=== PATIENT | female | born 1990 | race Caucasian/White ===

== ENCOUNTER 2016-08-03 15:43 | Outpatient (CLI) | payer OTHER ==
[~2016-08-03] VITALS: Ht 157.5 cm; Wt 84.1 kg
[2016-08-03 15:41] VITALS: BP 116/69; PULSE 79; RESP 18; Ht 157.5 cm; Wt 84.1 kg
[~2016-08-03 15:43] MED LIST: DOCU-144 PO; HYDR-3498 PO
--- NOTE | 2016-08-03 16:37 | PN ---
Date/Time of Note Date/Time of Note DATE: 08/03/16 TIME: 16:31 Assessment/Plan Assessment/Plan Assessment/Plan [facility] Progress Note Date of Service: 08/03/2016 Today's Assessment & Plan: Overall stable and doing well. No further issues. No indication for acute surgical intervention. No stent to remove. With above assessment, I've recommended the following for today: 1. F/u with PCP 2. F/u with us prn Thank you again for your great care of this very pleasant young lady and her wonderful family. If there are any questions, please feel free to call me at [phone]. TOTAL VISIT TIME: 20 minutes of which more than half was spent in [id number] discussion with the patient as well as coordination of care between multiple physicians and providers. Disclaimer: Inadvertent spelling and grammatical errors are likely due to EHR/ dictation software use and do not reflect on the quality of delivered patient care. Also, please note that the electronic time recorded on this node does not necessarily reflect the actual time of the visit. Updated Clinical Summary: The patient is a very pleasant otherwise healthy 26-year-old young lady with BMI of 34.7 with gallstone pancreatitis and otherwise normal appearing gallbladder. The patient appears to be clinically stable and my suspicion is that her pancreatitis is rapidly improving. I recommended that we do a laparoscopic cholecystectomy as a preventative measure due to patient's diagnosis of gallstone pancreatitis. S/p an otherwise uncomplicated laparoscopic cholecystectomy was performed with findings of normal appearing gallbladder with cholelithiasis on 06/07/16. D/c home 06/08/16. Had a postoperative clinic visit with me in my office on 06/15/2016. At that time, the patient appeared to be doing well with normal expected postoperative findings. This was followed by a visit to the emergency department at [facility] where again her workup that included laboratory values as well as a CT scan showed normal expected postoperative findings. Shortly after this, the patient pre-presented to an outside hospital emergency department where her transaminases were found to be elevated (AST approximately 1700) and amylase elevation. Transferred to [facility] for recurrent pancreatitis 06/16/16. S/p ERCP with removal of one (6 mm) stone and sphincterotomy 06/17/16 (no stent). D/c home 06/18/16. Comorbidity/PMHx List: 1. BMI 33.1 (previously 34.7) 2. Gallstone pancreatitis May 2016 3. Laparoscopic cholecystectomy 06/07/2016 4. ERCP with stone removal 06/17/2016 Subjective: No major events or complaints; no abd pain and no longer on pain medications; no n/v/d; no sob or cp; + flatus; + BM and normal; + activity Objective: Vitals: See below Exam: GENERAL: On exam, the patient was sitting up in a chair and appeared to be comfortable and in no acute distress. ABDOMEN: Soft, nontender and nondistended. Incisions are clean, dry and intact without any evidence of erythema, edema, discharge, or hernia. There are no peritoneal signs or guarding. SKIN: Skin appears to be pink and feels warm to touch. NEUROLOGIC: Patient is awake, alert, and follows commands appropriately. Exam/Review of Systems Vital Signs Vitals Vital Signs Date Time Temp Pulse Resp B/P Pulse Ox O2 Delivery O2 Flow Rate FiO2 08/03/16 15:41 98.0 79 18 116/69 99 Room Air JEWELL CLARK M.D. Aug 03, 2016 16:37
== END 2016-08-03 16:45 | disposition home or self-care (01) ==
LOC: HPC 15:43
PROVIDERS: ATTEND Transplant Surgery
DX: K85.10 Biliary acute pancreatitis without necrosis or infection (principal); K80.20 Calculus of gallbladder without cholecystitis without obstruction
CPT/HCPCS: G0463

== ENCOUNTER 2016-09-28 13:44 | Emergency (ER) | payer OTHER ==
[~2016-09-28] VITALS: Wt 61.4 kg
[2016-09-28] MEDS ORDERED: DICLOFENAC SODIUM 37.5 MG/ML VIAL IV STA (14:16)
[2016-09-28] MEDS ORDERED: ONDANSETRON 4 MG INJ IV STA (14:16)
[2016-09-28] MEDS ORDERED: SOD CHLORIDE 0.9% 1,000 ML IV ONE (14:30)
[2016-09-28 14:55] LABS: ADD SCAN DIFF NO
[2016-09-28 14:58] LABS: ADD UMIC YES; BASOPHIL # 0.1 10^3/ul (0.0-0.1); BASOPHILS % 0.7 % (0.0-2.0); EOSINOPHILS # 0.1 10^3/ul (0.0-0.5); EOSINOPHILS % 1.3 % (0.0-7.0); HEMATOCRIT 38.9 % (37.0-47.0); HEMOGLOBIN 11.8 g/dl (12.0-16.0); LYMPHOCYTES # 3.1 10^3/ul (0.8-2.9); LYMPHOCYTES % 40.9 % (15.0-51.0); MEAN CORPUSCULAR HEMOGLOBIN 22.5 pg (29.0-33.0); MEAN CORPUSCULAR HGB CONC 30.3 g/dl (32.0-37.0); MEAN CORPUSCULAR VOLUME 74.2 fl (82.0-101.0); MEAN PLATELET VOLUME 9.5 fl (7.4-10.4); MONOCYTE # 0.5 10^3/ul (0.3-0.9); MONOCYTES % 6.7 % (0.0-11.0); NEUTROPHIL # 3.8 10^3/ul (1.6-7.5); NEUTROPHILS % 50.3 % (39.0-77.0); PLATELET COUNT 366 10^3/UL (140-415); RED BLOOD COUNT 5.24 10^6/ul (4.20-5.40); RED CELL DISTRIBUTION WIDTH 13.8 % (11.5-14.5); URINE BILIRUBIN (Dip) NEGATIVE (NEGATIVE); URINE BLOOD (Dip) NEGATIVE (NEGATIVE); URINE COLOR LT. YELLOW (YELLOW); URINE GLUCOSE (Dip) NEGATIVE (NEGATIVE); URINE KETONES (Dip) NEGATIVE (NEGATIVE); URINE LEUKOCYTE ESTERASE (Dip) 1+ (NEGATIVE); URINE NITRITE (Dip) NEGATIVE (NEGATIVE); URINE TOTAL PROTEIN (Dip) NEGATIVE (NEGATIVE); URINE UROBILINOGEN (Dip) 0.2 E.U./dL (0.1-1.0); WHITE BLOOD COUNT 7.5 10^3/ul (4.8-10.8)
--- NOTE | 2016-09-28 15:05 | ERD ---
ER Documentation Chief Complaint Date/Time DATE: 09/28/16 TIME: 15:02 Chief Complaint gen'l abd pain, n/v/d, cough, curry HPI 26-year-old female presented to ED with multiple complaints. First, she complained of abdominal pain 2 days. The pain comes and goes, is strong. Accompanied with nausea and vomiting. She had 2 episodes of vomiting today. Last bowel movement was last night, and it was normal. She has history of pancreatitis, and cholecystectomy. Denies fever or chills. Denies diarrhea. Denies cough or runny nose. Denies dysuria. Second complaint is headache. She had headache for last 4 days. The pain is constant, concentrated in the forehead and eyes. Positive photophobia. Denies blurry vision. She took Tylenol at home for headache, Tylenol did improve the headache. Last dose of Tylenol was 3 hours ago. Denies recent head injuries. Denies neck pain. ROS All systems reviewed and are negative except as per history of present illness. Medications Home Meds Active Scripts Nitrofurantoin Monohyd Macrocr* (Macrobid*) 100 Mg Capsr, 100 MG PO BID for 7 Days, CAP Prov:FREDDIE YANES. TEXTURING MACHINE FIXER 09/28/16 Dicyclomine Hcl* (Bentyl*) 10 Mg Capsule, 10 MG PO QID, #10 CAP Prov:FREDDIE YANES. TEXTURING MACHINE FIXER 09/28/16 Ondansetron Hcl* (Zofran*) 4 Mg Tablet, 4 MG PO Q6H for NAUSEA AND/OR VOMITING, #30 TAB Prov:FREDDIE YANES. TEXTURING MACHINE FIXER 09/28/16 Acetaminophen* (Tylophen*) 500 Mg Capsule, 1 CAP PO Q6H Y for PAIN AND OR ELEVATED TEMP, #20 CAP Prov:FREDDIE YANES. TEXTURING MACHINE FIXER 09/28/16 Docusate Sodium* (Colace*) 100 Mg Capsule, 100 MG PO BID for 30 Days, #60 CAP Prov:BOYD ROSAS MD 06/18/16 Hydrocodone Bit-Acetaminophen (Hydrocodone Bit-APAP) 5-325MG Tablet, 1 TAB PO Q4H Y for PAIN LEVEL 4-7, #40 TAB Prov:IAN ARROYO 06/08/16 Allergies Allergies: Coded Allergies: No Known Allergy (Unverified , 06/16/16) PMhx/Soc History of Surgery: Yes (Cholecystectomy 06/08) Anesthesia Reaction: No Hx Neurological Disorder: No Hx Respiratory Disorders: No Hx Cardiac Disorders: No Hx Psychiatric Problems: No Hx Miscellaneous Medical Probl: No Hx Alcohol Use: No Hx Substance Use: No Hx Tobacco Use: No Physical Exam Vitals Vital Signs Date Time Temp Pulse Resp B/P Pulse Ox O2 Delivery O2 Flow Rate FiO2 09/28/16 13:46 98.3 80 20 123/65 99 Physical Exam General impression: Well-developed, well-nourished. Alert, oriented, in no acute distress Head: Normocephalic, atraumatic. Eyes: PERRL, EOM normal. Sclerae are normal. Conjunctiva not injected. ENT: Clear nasal discharge noted. Oral mucosa and oropharynx are normal. Neck: Supple, nontender. No lymphadenopathy. No nuchal rigidity. Respiration: Normal respiratory effort. Lungs clear to auscultate bilaterally. No wheezes, rales or rhonchi. Cardiovascular: Regular rate and rhythm. No murmurs or extra heart sounds. Abdomen: Abdomen normal to inspection. Abdomen diffusely tender with guarding, no rebound tenderness. No masses or organomegaly. Bowel sounds normal. Back: Normal to inspection. No midline spine tenderness. No CVA tenderness. Extremities: Extremities normal to inspection, nontender. ROM normal. Neuro: Mental status normal, speech normal. CANNON [employer] DIRECTION SPECIALIST grossly intact. Skin: Normal turgor. No rash or lesions. Psych: Normal mood and affect. Result Diagram: 09/28/16 1448 09/28/16 1448 Results 24 hrs Laboratory Tests Test 09/28/16 14:48 White Blood Count 7.510^3/ul Red Blood Count 5.2410^6/ul Hemoglobin 11.8g/dl Hematocrit 38.9% Mean Corpuscular Volume 74.2fl Mean Corpuscular Hemoglobin 22.5pg Mean Corpuscular Hemoglobin Concent 30.3g/dl Red Cell Distribution Width 13.8% Platelet Count 13876^3/UL Mean Platelet Volume 9.5fl Neutrophils % 50.3% Lymphocytes % 40.9% Monocytes % 6.7% Eosinophils % 1.3% Basophils % 0.7% Nucleated Red Blood Cells % 0.0/100WBC Neutrophils # 3.810^3/ul Lymphocytes # 3.110^3/ul Monocytes # 0.510^3/ul Eosinophils # 0.110^3/ul Basophils # 0.110^3/ul Nucleated Red Blood Cells # 0.010^3/ul Urine Color LT. YELLOW Urine Clarity CLEAR Urine pH 7.5 Urine Specific [place] 1.010 Urine Ketones NEGATIVE Urine Nitrite NEGATIVE Urine Bilirubin NEGATIVE Urine Urobilinogen 0.2 E.U./dL Urine Leukocyte Esterase 1+ Urine Microscopic RBC NONE SEEN/HPF Urine Microscopic WBC 0-2/HPF Urine Squamous Epithelial Cells FEW Urine Hemoglobin NEGATIVE Urine Glucose NEGATIVE% Urine Total Protein NEGATIVE Sodium Level 139mmol/L Potassium Level 4.3mmol/L Chloride Level 102mmol/L Carbon Dioxide Level 29mmol/L Anion Gap 12 Blood Urea Nitrogen 10mg/dl Creatinine 0.74mg/dl Glucose Level 80mg/dl Calcium Level 8.8mg/dl Total Bilirubin 0.0mg/dl Direct Bilirubin 0.00mg/dl Indirect Bilirubin 0.0mg/dl Aspartate Amino Transf (AST/SGOT) 21IU/L Alanine Aminotransferase (ALT/SGPT) 24IU/L Alkaline Phosphatase 93IU/L Total Protein 7.9g/dl Albumin 4.2g/dl Globulin 3.70g/dl Albumin/Globulin Ratio 1.13 Lipase 133U/L Current Medications Medications (Trade) Dose Ordered Sig/Aj Route PRN Reason Start Time Stop Time Status Last Admin Dose Admin Sodium Chloride (NS) 1,000 ml @ 1,000 mls/hr Q1H ONCE IV 09/28/16 14:30 09/28/16 15:29 DC 09/28/16 14:42 Ondansetron HCl (Zofran Inj) 4 mg ONCE STAT IV 09/28/16 14:16 09/28/16 14:18 DC 09/28/16 14:43 Diclofenac Sodium (Dyloject) 37.5 mg ONCE STAT IV 09/28/16 14:16 09/28/16 14:18 DC 09/28/16 14:42 Procedures/MDM 26-year-old female presented ED with abdominal pain and headache. CBC, CMP, lipase, and UA are obtained. Patient given Zofran and Dylojet in the ED for pain and nausea. Patient reports improvement of pain after medication. CBC, CMP, and lipase are unremarkable. UA show 1+ leukocyte, otherwise negative. Her abdominal pain and vomiting may be due to UTI, or more likely viral syndrome. Low suspicion for acute appendicitis, pancreatitis, bowel obstruction, or other acute abdomen. Patient's headache is likely a migraine type. Low suspicion for intracranial bleeding or mass, stroke, temporal arteritis, acute angle-closure glaucoma, or other acute etiology. Patient appears well, stable for discharge and outpatient management. Medical decision making shared with patient and family. Education provided to patient and family. Patient and family expressed understanding of the plan. Medications on discharge: Tylenol, Bentyl, Zofran. Follow-up: Primary care provider in 2-3 days or return to ED if worse. The case was reviewed and discussed with Dr. Miller, who agrees with the plan of care including labs, treatment, and advanced imaging as appropriate. FREDDIE YANES NP Sep 28, 2016 15:05
[2016-09-28 15:15] LABS: SQUAMOUS EPITHELIAL CELL,UR FEW; URINE RBCS NONE SEEN /HPF (0)
[2016-09-28 15:16] LABS: ALBUMIN 4.2 g/dl (3.3-4.9); ALBUMIN/GLOBULIN RATIO 1.13; CALCIUM 8.8 mg/dl (8.4-10.2); CREATININE 0.74 mg/dl (0.44-1.00); POTASSIUM 4.3 mmol/L (3.5-5.1); TOTAL PROTEIN 7.9 g/dl (6.1-8.1)
[2016-09-28] MEDS ORDERED: ONDA4TAB8 PO (15:40)
[2016-09-28] MEDS ORDERED: DICY10CA60 PO (15:40)
[2016-09-28] MEDS ORDERED: ACET500C5 PO (15:40)
[2016-09-28] MEDS ORDERED: NITR-58 PO (15:43)
== END 2016-09-28 16:01 | disposition home or self-care (01) ==
LOC: FTE 13:44
DX: R10.84 Generalized abdominal pain (principal); R11.2 Nausea with vomiting, unspecified
CPT/HCPCS: 36415; 80053; 81001; 83690; 85025; 96374; 96375; J2405; J7030; Z7502; Z7610; 81003

== ENCOUNTER 2017-04-30 19:02 | Emergency (ER) | payer OTHER ==
[~2017-04-30] VITALS: Ht 157.5 cm; Wt 91.0 kg
[~2017-04-30 19:02] MED LIST changes: +ACET500C5 PO; +DICY10CA60 PO; +NITR-58 PO; +ONDA4TAB8 PO
[2017-04-30 19:08] VITALS: Ht 157.5 cm; Wt 91.0 kg
[2017-04-30] MEDS ORDERED: ACETAMINOPHEN 500 MG TAB PO STA (20:35)
--- NOTE | 2017-04-30 20:43 | ERD ---
ER Documentation Chief Complaint Chief Complaint PELVIC PAIN WITH LFT FLANK WITH VAG SPOTTING @7AM, 3 WEEKS PREG HPI This is a 27-year-old female presents emergency department today complaining of lower abdominal pain for the past week, back pain and vaginal spotting that started this morning. States that her last mental period was March 18. States she is 3 weeks . States she does not have a riveter portable machine but does have a primary care doctor. States she has not taken any medication for the pain ROS All systems reviewed and are negative except as per history of present illness. Medications Home Meds Active Scripts Acetaminophen* (Tylophen*) 500 Mg Capsule, 1 CAP PO Q6H Y for PAIN AND OR ELEVATED TEMP, #30 CAP Prov:MARILOU HAGAN PA-C 04/30/17 Nitrofurantoin Monohyd Macrocr* (Macrobid*) 100 Mg Capsr, 100 MG PO BID for 7 Days, CAP Prov:FREDDIE YANES FURNACE OPERATOR OIL OR GAS 09/28/16 Dicyclomine Hcl* (Bentyl*) 10 Mg Capsule, 10 MG PO QID, #10 CAP Prov:FREDDIE YANES. FURNACE OPERATOR OIL OR GAS 09/28/16 Ondansetron Hcl* (Zofran*) 4 Mg Tablet, 4 MG PO Q6H for NAUSEA AND/OR VOMITING, #30 TAB Prov:FREDDIE YANES FURNACE OPERATOR OIL OR GAS 09/28/16 Acetaminophen* (Tylophen*) 500 Mg Capsule, 1 CAP PO Q6H Y for PAIN AND OR ELEVATED TEMP, #20 CAP Prov:FREDDIE YANES. HEIDI 09/28/16 Docusate Sodium* (Colace*) 100 Mg Capsule, 100 MG PO BID for 30 Days, #60 CAP Prov:BOYD ROSAS MD 06/18/16 Hydrocodone Bit-Acetaminophen (Hydrocodone Bit-APAP) 5-325MG Tablet, 1 TAB PO Q4H Y for PAIN LEVEL 4-7, #40 TAB Prov:IAN ARROYO 06/08/16 Allergies Allergies: Coded Allergies: No Known Allergy (Unverified , 06/16/16) PMhx/Soc Medical and Surgical Hx: pt denies Medical Hx History of Surgery: Yes (PACO) Anesthesia Reaction: No Hx Neurological Disorder: No Hx Respiratory Disorders: No Hx Cardiac Disorders: No Hx Psychiatric Problems: No Hx Miscellaneous Medical Probl: No Hx Alcohol Use: No Hx Substance Use: No Hx Tobacco Use: No Smoking Status: Never smoker Physical Exam Vitals Vital Signs Date Time Temp Pulse Resp B/P Pulse Ox O2 Delivery O2 Flow Rate FiO2 04/30/17 19:08 98.0 94 18 131/80 100 Physical Exam Const: NAD Head: Atraumatic Eyes: Normal Conjunctiva ENT: Normal External Ears, Nose and Mouth. Neck: Full range of motion..~ No meningismus. Resp: Clear to auscultation bilaterally Cardio: Regular rate and rhythm, no murmurs Abd: Soft,pelvic tenderness non distended. Normal bowel sounds. No tenderness at McBurney's Skin: No petechiae or rashes Back: No midline or flank tenderness Ext: No cyanosis, or edema Neur: Awake and alert Psych: Normal Mood and Affect Result Diagram: 04/30/172116 Results 24 hrs Laboratory Tests Test 04/30/17 21:17 04/30/17 22:30 White Blood Count 9.910^3/ul Red Blood Count 5.1510^6/ul Hemoglobin 11.7g/dl Hematocrit 37.8% Mean Corpuscular Volume 73.4fl Mean Corpuscular Hemoglobin 22.7pg Mean Corpuscular Hemoglobin Concent 31.0g/dl Red Cell Distribution Width 14.5% Platelet Count 11244^3/UL Mean Platelet Volume 9.0fl Neutrophils % 56.6% Lymphocytes % 36.2% Monocytes % 5.9% Eosinophils % 0.6% Basophils % 0.4% Nucleated Red Blood Cells % 0.0/100WBC Neutrophils # 5.610^3/ul Lymphocytes # 3.610^3/ul Monocytes # 0.610^3/ul Eosinophils # 0.110^3/ul Basophils # 0.010^3/ul Nucleated Red Blood Cells # 0.010^3/ul Beta HCG, Quantitative 64450.0mIU/ml Urine Color STRAW Urine Clarity CLEAR Urine pH 5.0 Urine Specific [place] 1.006 Urine Ketones NEGATIVEmg/dL Urine Nitrite NEGATIVEmg/dL Urine Bilirubin NEGATIVEmg/dL Urine Urobilinogen NEGATIVEmg/dL Urine Leukocyte Esterase NEGATIVELeu/ul Urine Microscopic RBC 0/HPF Urine Microscopic WBC 0/HPF Urine Hemoglobin 1+mg/dL Urine Glucose NEGATIVEmg/dL Urine Total Protein NEGATIVEmg/dl Current Medications Medications (Trade) Dose Ordered Sig/Aj Route PRN Reason Start Time Stop Time Status Last Admin Dose Admin Acetaminophen (Tylenol Tab) 500 mg ONCE STAT PO 04/30/17 20:35 04/30/17 20:36 DC 04/30/17 20:45 DIAGNOSTIC IMAGING REPORT Patient: MEGAN SAM : 1990 Age: 27 Sex: F MR #: [id number] DOS: 04/30/172051 Ordering MD: MARILOU HAGAN PA-C Location: [facility] Room/Bed: PROCEDURE: US OB. CLINICAL INDICATION: Vaginal bleeding. Positive TECHNIQUE: Transabdominal and transvaginal views of the pelvis are available for review. COMPARISON: No prior studies are available for comparison. FINDINGS: Uterus: No evidence of masses and normal in size estimated at 8 x 1 x 7 cm. Endometrial cavity: Intrauterine gestational sac, yolk sac and pole are present with the following information: Cicero-rump length: 0.22 cm heart rate: Not visualized Gestational sac: 1.21 cm Ultrasound estimated gestational age: 5 weeks 6 days Ovoid hypoechoic subchorionic hemorrhage measures 1.7 x 0.7 cm. Right ovary/adnexa: Ovarian size is normal estimated at 4.2 x 3.3 x 3 cm. Normal blood flow is demonstrated on Doppler interrogation. Simple ovarian cyst measures 2.7 x 1.9 x 1.7 cm. No adnexal mass lesion is seen. Left ovary/adnexa: Ovarian size normal estimated at 2.7 x 1.9 x 1.6 cm. Normal blood flow is demonstrated on Doppler interrogation. No ovarian or adnexal mass lesion is seen. Cul-de-sac: There is no free fluid. RPTAT:HJJR IMPRESSION: 1. Intrauterine gestational sac and embryonic pole measuring at an estimated gestational age of 5 weeks 6 days. 2. Lack of embryonic heart beat detection is believed to be related to the early age of gestation but follow-up evaluation is recommended. 3. Subchorionic hemorrhage of approximately 1.7 cm. 4. Simple right ovarian cyst of 2.7 cm. Yehuda Kendall, Physician Date Time Electronically viewed and signed by Yehuda Argueta Physician on 04/30/2017 21:28 JR/ CC: MARILOU HAGAN PA-C Procedures/MDM This is a 27-year-old female who presents to the emergency department today complaining of vaginal bleeding. Patient states she is approximately 3 weeks. Given this I did obtain a complete OB workup. Laboratory work shows no elevated white blood cell count. Her hemoglobin is very mildly decreased. Platelets are within normal limits. UA is negative for infection Beta quant hCG 24470 Rh status B + Ultrasound shows an intrauterine gestational sac, yolk sac, and embryonic pole measuring an estimated gestational age of 5 weeks and 6 days. There is lack of heartbeat detection believed to be related to early age of gestation. There is a subchorionic hemorrhage of approximately 1.7 cm. There is a simple right ovarian cyst. There is normal blood flow. There is no ovarian or adnexal mass. Patient symptoms at this time is consistent with vaginal bleeding in early . Other differentials to consider early normal versus early failed versus placenta previa versus subchorionic hemorrhage. Patient is afebrile and otherwise well-appearing. I have low suspicion for ectopic , tubo ovarian abscess, ovarian torsion. I placed a call to the laborist, Dr. Ji, given no FHT yet and she recommended repeat US in 3 days. I have explained the results to the patient. I have explained to the patient that they need to follow-up in 3 days for repeat US to further eval for FHT. At this time the patient is stable for discharge and outpatient management. Patient should follow up with their PCP in the next 1-2 days. They may return to the emergency department sooner for any persistent or worsening of symptoms. Patient understood and agreed with the plan. Departure Diagnosis: Primary Impression: Vaginal bleeding in patient at less than 20 weeks gestation Condition: Fair MARILOU HAGAN PA-C Apr 30, 2017 20:43
--- NOTE | 2017-04-30 21:28 | RADRPT ---
PROCEDURE: US OB. CLINICAL INDICATION: Vaginal bleeding. Positive TECHNIQUE: Transabdominal and transvaginal views of the pelvis are available for review. COMPARISON: No prior studies are available for comparison. FINDINGS: Uterus: No evidence of masses and normal in size estimated at 8 x 1 x 7 cm. Endometrial cavity: Intrauterine gestational sac, yolk sac and pole are present with the foll owing information: [place]win-rump length:0.22 cm heart rate:Not visualized Gestational sac:1.21 cm Ultrasound estimated gestational age:5 weeks 6 days Ovoid hypoechoic subchorionic hemorrhage measures 1.7 x 0.7 cm. Right ovary/adnexa: Ovarian size is normal estimated at 4.2 x 3.3 x 3 cm. Normal blood flow is demo nstrated on Doppler interrogation. Simple ovarian cyst measures 2.7 x 1.9 x 1.7 cm. No adnexal mass lesion is seen. Left ovary/adnexa: Ovarian size normal estimated at 2.7 x 1.9 x 1.6 cm. Normal blood flow is demons trated on Doppler interrogation. No ovarian or adnexal mass lesion is seen. Cul-de-sac: There is no free fluid. RPTAT:HJJR IMPRESSION: 1. Intrauterine gestational sac and embryonic pole measuring at an estimated gestational age of 5 w eeks 6 days. 2. Lack of embryonic heart beat detection is believed to be related to the early age of gestation b ut follow-up evaluation is recommended. 3. Subchorionic hemorrhage of approximately 1.7 cm. 4. Simple right ovarian cyst of 2.7 cm. Physician Zhang Date Time Electronically viewed and signed by Physician Zhang on 04/30/2017 21:28 /
[2017-04-30 21:41] LABS: BASOPHILS % 0.4 % (0.0-2.0); EOSINOPHILS # 0.1 10^3/ul (0.0-0.5); EOSINOPHILS % 0.6 % (0.0-7.0); HEMATOCRIT 37.8 % (37.0-47.0); HEMOGLOBIN 11.7 g/dl (12.0-16.0); LYMPHOCYTES # 3.6 10^3/ul (0.8-2.9); LYMPHOCYTES % 36.2 % (15.0-51.0); MEAN CORPUSCULAR HEMOGLOBIN 22.7 pg (29.0-33.0); MEAN CORPUSCULAR VOLUME 73.4 fl (82.0-101.0); MONOCYTE # 0.6 10^3/ul (0.3-0.9); MONOCYTES % 5.9 % (0.0-11.0); NEUTROPHIL # 5.6 10^3/ul (1.6-7.5); NEUTROPHILS % 56.6 % (39.0-77.0); PLATELET COUNT 303 10^3/UL (140-415); RED BLOOD COUNT 5.15 10^6/ul (4.20-5.40); RED CELL DISTRIBUTION WIDTH 14.5 % (11.5-14.5); WHITE BLOOD COUNT 9.9 10^3/ul (4.8-10.8)
[2017-04-30 22:47] LABS: ADD UMIC YES; UR ASCORBIC ACID NEGATIVE (NEGATIVE); UR BILIRUBIN (Dip) NEGATIVE (NEGATIVE); UR BLOOD (Dip) 1+ mg/dL (NEGATIVE); UR CLARITY CLEAR (CLEAR); UR COLOR STRAW (YELLOW); UR GLUCOSE (Dip) NEGATIVE (NEGATIVE); UR KETONES (Dip) NEGATIVE (NEGATIVE); UR LEUKOCYTE ESTERASE (Dip) NEGATIVE Leu/ul (NEGATIVE); UR NITRITE (Dip) NEGATIVE (NEGATIVE); UR RBC 0 /HPF (0-5); UR SPECIFIC GRAVITY (Dip) 1.006 (1.003-1.030); UR TOTAL PROTEIN (Dip) NEGATIVE (NEGATIVE); UR UROBILINOGEN (Dip) NEGATIVE (NEGATIVE)
[2017-04-30] MEDS ORDERED: ACET500C5 PO (23:09)
[2017-04-30 23:13] VITALS: BP 130/82; PULSE 75; RESP 16
== END 2017-04-30 23:15 | disposition home or self-care (01) ==
LOC: FTE 19:02
DX: O20.9 Hemorrhage in early pregnancy, unspecified (principal); O26.891 Other specified pregnancy related conditions, first trimester; R10.2 Pelvic and perineal pain; Z3A.01 Less than 8 weeks gestation of pregnancy
CPT/HCPCS: 76801; 76817; 81001; 84702; 85025; 86900; 86901; Z7610; 36415

== ENCOUNTER 2017-05-09 11:51 | Emergency (ER) | payer OTHER ==
[~2017-05-09] VITALS: Wt 90.9 kg
== END 2017-05-09 12:49 | disposition left against medical advice (07) ==
LOC: FTE 11:51
DX: Z53.21 Procedure and treatment not carried out due to patient leaving prior to being seen by health care provider (principal)

== ENCOUNTER 2017-05-13 12:03 | Emergency (ER) | payer OTHER ==
[~2017-05-13] VITALS: Ht 157.5 cm; Wt 91.1 kg
[2017-05-13 12:05] VITALS: Ht 157.5 cm; Wt 91.1 kg
[2017-05-13] MEDS ORDERED: ACETAMINOPHEN 325 MG TAB PO ONE (13:30)
[2017-05-13 13:45] LABS: ADD UMIC YES; UR ASCORBIC ACID NEGATIVE (NEGATIVE); UR BILIRUBIN (Dip) NEGATIVE (NEGATIVE); UR BLOOD (Dip) 3+ mg/dL (NEGATIVE); UR CLARITY CLEAR (CLEAR); UR COLOR COLORLESS (YELLOW); UR GLUCOSE (Dip) NEGATIVE (NEGATIVE); UR KETONES (Dip) NEGATIVE (NEGATIVE); UR LEUKOCYTE ESTERASE (Dip) NEGATIVE Leu/ul (NEGATIVE); UR NITRITE (Dip) NEGATIVE (NEGATIVE); UR RBC 0 /HPF (0-5); UR SPECIFIC GRAVITY (Dip) 1.001 (1.003-1.030); UR TOTAL PROTEIN (Dip) NEGATIVE (NEGATIVE); UR UROBILINOGEN (Dip) NEGATIVE (NEGATIVE)
[2017-05-13 14:01] LABS: BASOPHILS % 0.5 % (0.0-2.0); EOSINOPHILS % 0.4 % (0.0-7.0); HEMOGLOBIN 10.5 g/dl (12.0-16.0); LYMPHOCYTES # 2.6 10^3/ul (0.8-2.9); MEAN CORPUSCULAR HEMOGLOBIN 22.5 pg (29.0-33.0); MEAN CORPUSCULAR HGB CONC 30.9 g/dl (32.0-37.0); MEAN PLATELET VOLUME 9.4 fl (7.4-10.4); MONOCYTE # 0.4 10^3/ul (0.3-0.9); MONOCYTES % 4.9 % (0.0-11.0); NEUTROPHIL # 4.6 10^3/ul (1.6-7.5); NEUTROPHILS % 59.9 % (39.0-77.0); PLATELET COUNT 309 10^3/UL (140-415); RED BLOOD COUNT 4.66 10^6/ul (4.20-5.40); RED CELL DISTRIBUTION WIDTH 14.4 % (11.5-14.5); WHITE BLOOD COUNT 7.7 10^3/ul (4.8-10.8)
--- NOTE | 2017-05-13 15:01 | RADRPT ---
PROCEDURE: US Pelvis. CLINICAL INDICATION: Vaginal bleeding TECHNIQUE: Multiple sonographic images of the pelvis were obtained utilizing a transabdominal and endovaginal technique. The images were reviewed on a PACS workstation. COMPARISON: None. FINDINGS: The uterus is normal in size with a normal appearance of the myometrium. The uterus measures 9.5 x 6.2 x 3.9 cm. The endometrial stripe is homogeneous in appearance and has the thickness of 16 mm. The ovaries are normal in size and echogenicity. Normal Doppler flow is identified in both ovaries. The right ovary measures 3.9 x 3.0 x 3.0 cm. 2.5 cm thick walled cyst about the right ovary The left ovary measures 3.1 x 1.5 x 2.0 cm. No free fluid is present within the pelvis. RPTAT: AA IMPRESSION: 2.5 cm thick-walled cyst about the right ovary likely reflects a corpus luteum cyst. Ectopic pregnan cy is not completely excluded. No free fluid. Correlation with test recommended. Physician Jaime Date Time Electronically viewed and signed by Physician Jaime on 05/13/2017 15:01 TN/
--- NOTE | 2017-05-13 17:38 | ERD ---
ER Documentation Chief Complaint Chief Complaint VAG BLEED ONSET TODAY , 7 WEEKS PREG , FEELS BLOATED HPI 27-year-old female patient with no significant past medical history is a presents to the ED complaining of vaginal bleeding that started intermittently for the past 3 days. Reports that it has worsened today and she started to have heavier vaginal bleeding and has had to change 5 pads. Reports that her last menstruation was on March 18, 2017. Denies any chest pain, shortness of breath, nausea, vomiting, diarrhea, vaginal discharge, dysuria, urgency, frequency, hematuria. Patient was seen here on April 30, 2017 for similar symptoms of vaginal bleeding and was noted to have a gestational sac and embryonic pole. Reports that she has some slight right lower back pain. ROS All systems reviewed and are negative except as per history of present illness. Medications Home Meds Active Scripts Acetaminophen* (Tylophen*) 500 Mg Capsule, 1 CAP PO Q6H Y for PAIN AND OR ELEVATED TEMP, #30 CAP Prov:MARILOU HAGAN PA-C 04/30/17 Nitrofurantoin Monohyd Macrocr* (Macrobid*) 100 Mg Capsr, 100 MG PO BID for 7 Days, CAP Prov:FREDDIE YANES NP 09/28/16 Dicyclomine Hcl* (Bentyl*) 10 Mg Capsule, 10 MG PO QID, #10 CAP Prov:FREDDIE YANES. 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 09/28/16 Ondansetron Hcl* (Zofran*) 4 Mg Tablet, 4 MG PO Q6H for NAUSEA AND/OR VOMITING, #30 TAB Prov:FREDDIE YANES NP 09/28/16 Acetaminophen* (Tylophen*) 500 Mg Capsule, 1 CAP PO Q6H Y for PAIN AND OR ELEVATED TEMP, #20 CAP Prov:FREDDIE YANES NP 09/28/16 Docusate Sodium* (Colace*) 100 Mg Capsule, 100 MG PO BID for 30 Days, #60 CAP Prov:BOYD ROSAS MD 06/18/16 Hydrocodone Bit-Acetaminophen (Hydrocodone Bit-APAP) 5-325MG Tablet, 1 TAB PO Q4H Y for PAIN LEVEL 4-7, #40 TAB Prov:IAN ARROYO 06/08/16 Allergies Allergies: Coded Allergies: No Known Allergy (Unverified , 06/16/16) PMhx/Soc Medical and Surgical Hx: pt denies Medical Hx, pt denies Surgical Hx History of Surgery: Yes (PACO) Anesthesia Reaction: No Hx Neurological Disorder: No Hx Respiratory Disorders: No Hx Cardiac Disorders: No Hx Psychiatric Problems: No Hx Miscellaneous Medical Probl: No Hx Alcohol Use: No Hx Substance Use: No Hx Tobacco Use: No Smoking Status: Never smoker Physical Exam Vitals Vital Signs Date Time Temp Pulse Resp B/P Pulse Ox O2 Delivery O2 Flow Rate FiO2 05/13/17 12:05 98.1 90 18 136/82 99 Physical Exam Const: Suh-jvn-nomycxmhj, well-nourished. In no acute distress. Head: Atraumatic, normocephalic Eyes: Normal Conjunctiva without injection. No purulent discharge. ENT: Normal external ear, nose. Moist oropharynx without tonsillar exudates. Non -erythematous pharynx. Uvula midline. No drooling. No trismus. Neck: No cervical midline tenderness. Full range of motion. No meningismus. No cervical lymphadenopathy. No JVD. Resp: Clear to auscultation bilaterally. No wheezing, rhonchi, rales, or crackles. No accessory muscle use. No retractions. Cardio: Regular rate and rhythm. No murmurs, rubs or gallops. Abd: Soft, nontender, non distended. Normal bowel sounds. No palpable masses. No rebound tenderness. No guarding. Negative McBurney's point. Negative psoas sign. Negative obturator sign. Skin: No petechiae or rashes Back: No midline tenderness. No CVA tenderness. Ext: No cyanosis, or edema. Neur: Awake and alert. Normal gait. Normal coordination. Psych: Normal Mood and Affect Results 24 hrs Laboratory Tests Test 05/13/17 13:21 05/13/17 13:32 Urine Color COLORLESS Urine Clarity CLEAR Urine pH 7.0 Urine Specific [place] 1.001 Urine Ketones NEGATIVEmg/dL Urine Nitrite NEGATIVEmg/dL Urine Bilirubin NEGATIVEmg/dL Urine Urobilinogen NEGATIVEmg/dL Urine Leukocyte Esterase NEGATIVELeu/ul Urine Microscopic RBC 0/HPF Urine Microscopic WBC 0/HPF Urine Hemoglobin 3+mg/dL Urine Glucose NEGATIVEmg/dL Urine Total Protein NEGATIVEmg/dl White Blood Count 7.710^3/ul Red Blood Count 4.6610^6/ul Hemoglobin 10.5g/dl Hematocrit 34.0% Mean Corpuscular Volume 73.0fl Mean Corpuscular Hemoglobin 22.5pg Mean Corpuscular Hemoglobin Concent 30.9g/dl Red Cell Distribution Width 14.4% Platelet Count 01879^3/UL Mean Platelet Volume 9.4fl Neutrophils % 59.9% Lymphocytes % 34.0% Monocytes % 4.9% Eosinophils % 0.4% Basophils % 0.5% Nucleated Red Blood Cells % 0.0/100WBC Neutrophils # 4.610^3/ul Lymphocytes # 2.610^3/ul Monocytes # 0.410^3/ul Eosinophils # 0.010^3/ul Basophils # 0.010^3/ul Nucleated Red Blood Cells # 0.010^3/ul Beta HCG, Quantitative 2436.1mIU/ml Current Medications Medications (Trade) Dose Ordered Sig/Aj Route PRN Reason Start Time Stop Time Status Last Admin Dose Admin Acetaminophen (Tylenol Tab) 650 mg ONCE ONCE PO 05/13/17 13:30 05/13/17 13:31 DC 05/13/17 13:24 Procedures/MDM 27-year-old female patient who is a with no significant past medical history presents to the ED complaining of vaginal bleeding and right-sided lower back pain. Patient is afebrile and nontoxic-appearing. Patient has normal vital signs. An ultrasound, beta-hCG, CBC, type and RH, UA was ordered to evaluate patient. CBC: No evidence of severe infection or anemia Urine: No elevation in nitrites, leukocyte esterase, hematuria. No evidence of UTI Rh: B positive No indication for Rhogam at this time. beta Hc.1 downtrended from 10093. PROCEDURE: US Pelvis. CLINICAL INDICATION: Vaginal bleeding TECHNIQUE: Multiple sonographic images of the pelvis were obtained utilizing a transabdominal and endovaginal technique. The images were reviewed on a PACS workstation. COMPARISON: None. FINDINGS: The uterus is normal in size with a normal appearance of the myometrium. The uterus measures 9.5 x 6.2 x 3.9 cm. The endometrial stripe is homogeneous in appearance and has the thickness of 16 mm. The ovaries are normal in size and echogenicity. Normal Doppler flow is identified in both ovaries. The right ovary measures 3.9 x 3.0 x 3.0 cm. 2.5 cm thick walled cyst about the right ovary The left ovary measures 3.1 x 1.5 x 2.0 cm. No free fluid is present within the pelvis. RPTAT: AA IMPRESSION: 2.5 cm thick-walled cyst about the right ovary likely reflects a corpus luteum cyst. Ectopic is not completely excluded. No free fluid. Correlation with test recommended. Patient's bleeding symptoms have stabilized while in the department. Pelvic Exam: Programmer Operator Numerical Control present Abdomen: [Nontender] External Genitalia: [Normal Skin] Speculum: [Normal vaginal mucosa, normal cervical discharge, vaginal bleeding noted with slight clots. Cervical os slightly closing. No vaginal tissue or blood clots noted] Bimanual: [No adnexal masses or tenderness, No CMT] Patient is likely experiencing a miscarriage secondary to downtrending of the beta hCG. She also was noted to have an intrauterine gestational sac and embryonic pole measuring up to 5 weeks and 6 days without a embryonic heartbeat on April 30, 2017 and now has no intrauterine . Patient also has a right ovarian cyst. Low suspicion for symptomatic anemia, ectopic , sepsis, PID, appendicitis, ovarian torsion, tubo-ovarian abscess, surgical abdomen, or other emergent conditions. Patient was educated that there is a risk for threatened . Discussed with my supervising physician, Dr. Jerez who agreed with the management and discharge plan. Patient to follow up with NURSING EDUCATOR in 2 days for further evaluation and treatment. Patient is to return sooner to the ED for any worsening symptoms. Patient's questions were answered. Patient understood and agreed with discharge plan. Departure Diagnosis: Primary Impression: Vaginal bleeding in patient at less than 20 weeks ges... Condition: Stable Patient Instructions: Possible Miscarriage (Threatened ) Referrals: JADA RODRIGEZ MD (PCP) [facility] YOU HAVE RECEIVED A MEDICAL SCREENING EXAM AND THE RESULTS INDICATE THAT YOU DO NOT HAVE A CONDITION THAT REQUIRES URGENT TREATMENT IN THE EMERGENCY DEPARTMENT. FURTHER EVALUATION AND TREATMENT OF YOUR CONDITION CAN WAIT UNTIL YOU ARE SEEN IN YOUR DOCTORS OFFICE WITHIN THE NEXT 1-2 DAYS. IT IS YOUR RESPONSIBILITY TO MAKE AN APPOINTMENT FOR FOLOW-UP CARE. IF YOU HAVE A PRIMARY DOCTOR --you should call your primary doctor and schedule an appointment IF YOU DO NOT HAVE A PRIMARY DOCTOR YOU CAN CALL OUR PHYSICIAN REFERRAL HOTLINE AT IF YOU CAN NOT AFFORD TO SEE A PHYSICIAN YOU CAN CHOSE FROM THE FOLLOWING CRITICAL ACCESS HOSPITAL CLINICS [facility] [phone] [facility] [address] [facility]. [facility] [address] [facility] [phone] [facility] [phone] [facility]. [facility] [address] [facility]. [facility] YOU HAVE RECEIVED A MEDICAL SCREENING EXAM AND THE RESULTS INDICATE THAT YOU DO NOT HAVE A CONDITION THAT REQUIRES URGENT TREATMENT IN THE EMERGENCY DEPARTMENT. FURTHER EVALUATION AND TREATMENT OF YOUR CONDITION CAN WAIT UNTIL YOU ARE SEEN IN YOUR DOCTORS OFFICE WITHIN THE NEXT 1-2 DAYS. IT IS YOUR RESPONSIBILITY TO MAKE AN APPOINTMENT FOR FOLOW- CARE. IF YOU HAVE A PRIMARY DOCTOR --you should call your primary doctor and schedule and appointment IF YOU DO NOT HAVE A PRIMARY DOCTOR YOU CAN CALL OUR PHYSICIAN REFERRAL HOTLINE AT . IF YOU CAN NOT AFFORD TO SEE A PHYSICIAN YOU CAN CHOSE FROM THE FOLLOWING CRITICAL ACCESS HOSPITAL INSTITUTIONS: [facility] [address] [place] [address] [facility] [address] [place] [address] [facility] [address] [place] [address] [facility] URGENT CARE/SPECIALTIES NURSING EDUC[place] [address] [facility] [address] [place], [place] [id number] OFFICE FAX , DEV[address] [place] [address] [address] [place] [place] [address] [place], [place] [id number] [address]UR[address] [facility] [address] [id number] [address] [place] [address] [place] [phone] [facility] [address] [place] [phone] [facility] [address] - [address] SANTIAGO, MATILDA [address], [place] [facility] [address] [address] CANO, PHAM [address] [facility] [address], [place] [facility] [address] [address] LOPEZ, [place] [address] [place] [address] [facility] Hours: 8:00 am - 5:00 pm Additional Instructions: Seguimiento con obstetra en 2 reza para evaluacin y tratamiento adicionales Dgale a la secretaria que nosotros le instruimos hacer esta richa.Avise o llame si dickens condicin se empeora antes de la richa. Regresa aqui si peor o no mejor. JOSIANE SHELTON PA-C May 13, 2017 17:38 JOSIANE SHELTON PA-C May 13, 2017 17:38
== END 2017-05-13 16:42 | disposition home or self-care (01) ==
LOC: FTE 12:03
DX: O20.9 Hemorrhage in early pregnancy, unspecified (principal); R10.2 Pelvic and perineal pain; Z3A.01 Less than 8 weeks gestation of pregnancy
CPT/HCPCS: 76801; 76817; 81001; 84702; 85025; 86900; 86901; Z7610; 36415